=== PATIENT | male | born 1975 | race Two or more races ===

== ENCOUNTER 2017-06-14 17:32 | Emergency (ER) | payer BC ==
[~2017-06-14] VITALS: Ht 182.9 cm; Wt 145.1 kg
[2017-06-14 18:17] LABS: BASOPHILS # (AUTO) 0.1 K/uL (0.0-8.0); BASOPHILS % (AUTO) 0.7 % (0.0-2.0); EOSINOPHILS # (AUTO) 0.1 K/uL (0.0-0.7); HEMOGLOBIN 13.5 g/dL (12.5-16.3); LYMPHOCYTES # (AUTO) 2.5 K/uL (20.0-40.0); MEAN CORPUSCULAR HEMOGLOBIN 29.1 uug (23.8-33.4); MEAN CORPUSCULAR HGB CONC 35 g/dL (32.5-36.3); MEAN CORPUSCULAR VOLUME 83.8 fL (73.0-96.2); MONOCYTES # (AUTO) 0.6 K/uL (2.0-10.0); NEUTROPHILS # (AUTO) 5.5 K/uL (1.8-8.9); NEUTROPHILS % (AUTO) 62.3 % (38.5-71.5); PLATELET COUNT (AUTO) 233 K/uL (152-348); RED BLOOD CELL COUNT(AUTO) 4.65 MIL/uL (4.06-5.63); WHITE BLOOD COUNT (AUTO) 8.8 K/uL (3.6-10.2)
--- NOTE | 2017-06-14 18:19 | NUR ---
Patient is resting comfortably in bed with eyes closed, NAD noted.
[2017-06-14 18:25] LABS: CREATININE 0.9 mg/dL (0.6-1.3); POTASSIUM 3.9 mmol/L (3.5-5.1)
[2017-06-14 18:36] LABS: BILIRUBIN,DIRECT 0.1 mg/dL (0.0-0.2); BILIRUBIN,TOTAL 0.6 mg/dL (0.2-1.0); TOTAL PROTEIN, SERUM 7.4 g/dL (6.4-8.2)
[2017-06-14] MEDS ORDERED: ASPIRIN 81 MG TAB.CHEW PO ONE (18:45)
[2017-06-14] MEDS ORDERED: NITROGLYCERIN OINT 1 GM PACKET TP ONE ×2 (18:45→18:49)
[2017-06-14] MEDS ORDERED: ASPIRIN 81 MG TAB.CHEW ONE (18:49)
[2017-06-14 19:02] LABS: BILIRUBIN,DIRECT 0.1 mg/dL (0.0-0.2); BILIRUBIN,TOTAL 0.6 mg/dL (0.2-1.0); TOTAL PROTEIN, SERUM 7.5 g/dL (6.4-8.2)
--- NOTE | 2017-06-14 19:14 | NUR ---
Shift report given to Juanjo HUERTA. I relinquish care at this time.
--- NOTE | 2017-06-14 21:41 | NUR ---
pt resting, monitor shows nsr, no distress noted.
--- NOTE | 2017-06-14 22:27 | NUR ---
mse completed, aci/copy of tests/ekg given. iv d/c'd intact, pt got dressed ambulated w/o diff, took all belongings, ntg paste removed.
[2017-06-14 22:29] VITALS: BP 138/68
== END 2017-06-14 22:29 | disposition home or self-care (01) ==
LOC: ER 17:33
DX: R07.89 Other chest pain (principal); F41.9 Anxiety disorder, unspecified; Z91.013 Allergy to seafood; Z91.018 Allergy to other foods
CPT/HCPCS: 36415; 70030-TC; 71045; 85025; 85730; 93005; A4663